=== PATIENT | male | born 2000 | race African-American/Black ===

== ENCOUNTER → 2021-06-28 | Outpatient (CLI) | payer OTHER ==
--- NOTE | 2021-06-28 12:41 | REP ---
INDICATION: EMERSON LEG PAIN ? STRESS FX. COMPARISON: None. TECHNIQUE/RADIOTRACER AND DOSE: After the intravenous administration of 22.0 mCi of technetium 99 M MDP a triple phase bone scan of the lower extremities was obtained FINDINGS: There is no abnormal increased or decreased activity seen in either lower extremity on the flow portion of the exam. There is no abnormal increased or decreased activity seen on blood pool images. Normal activity is seen in the lower extremities on delayed imaging. IMPRESSION: Within normal limits. <Electronically signed by Alberto Ding > 06/28/21 [id number]
== END ==
LOC: M RAD 07:24
PROVIDERS: ATTEND Nurse Practitioner
DX: M79.604 Pain in right leg (principal); M79.605 Pain in left leg
CPT/HCPCS: 78315; A9503

== ENCOUNTER 2021-08-24 11:42 | Emergency (ER) | payer OTHER ==
[~2021-08-24] VITALS: Ht 185.4 cm; Wt 91.0 kg
[2021-08-24] MEDS ORDERED: KETOROLAC 30 MG/ML 1ML VIAL IM ONE (15:40)
[2021-08-24] MEDS ORDERED: ACETAMINOPHEN 500 MG TAB PO ONE (15:40)
[2021-08-24 16:04] VITALS: BP 136/84
== END 2021-08-24 16:33 | disposition home or self-care (01) ==
LOC: M ED 11:42
DX: M25.561 Pain in right knee (principal); M25.562 Pain in left knee; Z77.098 Contact with and (suspected) exposure to other hazardous, chiefly nonmedicinal, chemicals
CPT/HCPCS: 96372; 99283; J1885